=== PATIENT | male | born 1980 | race Two or more races ===

== ENCOUNTER 2022-07-10 15:05 | Inpatient (IN) | payer OTHER ==
[~2022-07-10] VITALS: Ht 172.7 cm; Wt 90.7 kg
[2022-07-10] MEDS ORDERED: VANCOMYCIN PER PHARMACY 1,000 MG IV SCH (16:00)
[2022-07-10 16:43] LABS: Basophils # (auto) 0.1 10 ^3/uL (0-0.2); Basophils % (auto) 1.5 % (0.0-2.0); Eosinophils # (auto) 0.1 10 ^3/uL (0-0.8); Eosinophils % (auto) 0.7 % (0.0-7.0); Hematocrit 44.3 % (41.0-53.0); Hemoglobin 14.9 g/dL (13.5-17.5); Lymphocytes # (auto) 1.5 10 ^3/uL (0.4-5.4); Mean Corpuscular Hemoglobin 31.1 pg (28.0-32.0); Mean Corpuscular Hgb Conc. 33.6 g/dL (32.0-36.0); Mean Corpuscular Volume 92.6 fL (80.0-100.0); Monocytes # (auto) 0.8 10 ^3/uL (0-1.3); Monocytes % (auto) 8.4 % (0.0-12.0); Neutrophils # (auto) 6.6 10 ^3/uL (1.6-8.6); Neutrophils % (auto) 72.4 % (37.0-80.0); Nucleated Red Blood Cells % 0.2 %; Red Blood Cells 4.78 10^6/uL (4.5-5.90); Red Cell Distribution Width 13.2 % (11.8-14.3); White Blood Cell 9.1 10^3/uL (4.4-10.8)
[2022-07-10 17:07] LABS: Albumin 3.8 g/dL (3.4-5.0); Calcium 9.1 mg/dL (8.5-10.1); Potassium 4.6 mmol/L (3.5-5.1)
[2022-07-10 17:16] LABS: Bilirubin, Total 0.6 mg/dL (0.2-1.0); CRP High Sensitivity 1.41 mg/dL (< 0.3); Total Protein 7.4 g/dL (6.4-8.2)
[2022-07-10] MEDS ORDERED: VANCOMYCIN 1GM/250ML 250 ML IV SCH ×2 (18:30→22:00)
[2022-07-10] MEDS ORDERED: HYDROcodone-ACET 10/325MG TAB PO PRN (18:45)
[2022-07-10 21:35] VITALS: BP 127/75
[2022-07-10] MEDS ORDERED: PIPERACILLIN-TAZO 4.5GM 100 ML IV SCH (22:00)
[2022-07-10] MEDS ORDERED: VANCOMYCIN 1GM/250ML 250 ML IV ONE (22:00)
[2022-07-10 22:15] VITALS: BP 127/75
[2022-07-11 05:00] VITALS: BP 111/69
[2022-07-11 08:25] VITALS: BP_SYST 117; BP_SYST 124; BP_DIAS 67; BP_DIAS 79
[2022-07-11 12:44] VITALS: BP_SYST 116; BP_SYST 134; BP_DIAS 60; BP_DIAS 79
[2022-07-11] MEDS ORDERED: ONDANSETRON HCL 4 MG/2 ML VIAL IV PRN (15:15)
[2022-07-11 17:00] VITALS: BP 128/75
[2022-07-11] MEDS ORDERED: VANCOMYCIN PER PHARMACY 0 MG IV SCH (17:00)
[2022-07-11] MEDS: VANCOMYCIN 1GM/250ML 250 ML IV SCH (18:15)
[2022-07-11 22:00] VITALS: BP 132/79
[2022-07-12] MEDS: VANCOMYCIN 1GM/250ML 250 ML IV SCH ×3 (02:09→19:00)
[2022-07-12 05:00] VITALS: BP_SYST 115; BP_SYST 118; BP_DIAS 66; BP_DIAS 80
[2022-07-12] MEDS: MORPHINE SULFATE 4 MG/ML SYR/VIAL IV PRN ×2 (08:32→13:41)
[2022-07-12 09:00] VITALS: BP 125/75
[2022-07-12 13:00] VITALS: BP 116/70
[2022-07-12 17:00] VITALS: BP 115/66
[2022-07-12] MEDS: traMADol HCL 50 MG TAB PO PRN (19:01)
[2022-07-13] MEDS: VANCOMYCIN 1GM/250ML 250 ML IV SCH ×3 (02:40→17:34)
[2022-07-13 05:14] VITALS: BP 114/65
[2022-07-13] MEDS: traMADol HCL 50 MG TAB PO PRN ×3 (05:42→17:35)
[2022-07-13 06:08] LABS: Potassium 3.7 mmol/L (3.5-5.1)
[2022-07-13 06:16] LABS: Albumin 2.9 g/dL (3.4-5.0); BUN/Creatinine Ratio 23.3 (10.0-20.0); Bilirubin, Total 0.6 mg/dL (0.2-1.0); Calcium 8.7 mg/dL (8.5-10.1); Total Protein 6.2 g/dL (6.4-8.2)
[2022-07-13 09:00] VITALS: BP 117/65
[2022-07-13 13:00] VITALS: BP 103/52
[2022-07-13 17:00] VITALS: BP 105/51
[2022-07-13 22:00] VITALS: BP 122/81
[2022-07-14] MEDS: traMADol HCL 50 MG TAB PO PRN ×3 (02:07→17:23)
[2022-07-14] MEDS: VANCOMYCIN 1GM/250ML 250 ML IV SCH ×3 (02:07→18:03)
[2022-07-14 05:00] VITALS: BP 113/64
[2022-07-14 05:42] LABS: INR 1.02 (0.9-1.15); Partial Thromboplastin Time 34.7 sec (24.6-33.4)
[2022-07-14 05:50] LABS: Albumin 2.8 g/dL (3.4-5.0); Calcium 8.3 mg/dL (8.5-10.1); Potassium 4.4 mmol/L (3.5-5.1)
[2022-07-14 05:53] LABS: BUN/Creatinine Ratio 18.1 (10.0-20.0); Bilirubin, Total 0.4 mg/dL (0.2-1.0); Total Protein 5.6 g/dL (6.4-8.2)
[2022-07-14 09:00] VITALS: BP 108/63
[2022-07-14 12:38] LABS: Hepatitis C Antibody Reactive (Negative)
[2022-07-14 13:00] VITALS: BP 108/54
[2022-07-14 16:47] VITALS: BP 112/64
[2022-07-14 22:00] VITALS: BP 113/66
[2022-07-15] MEDS: VANCOMYCIN 1GM/250ML 250 ML IV SCH ×3 (01:34→18:34)
[2022-07-15] MEDS: traMADol HCL 50 MG TAB PO PRN ×2 (01:35→09:08)
[2022-07-15 05:00] VITALS: BP 113/62
[2022-07-15 06:46] LABS: Basophils # (auto) 0.1 10 ^3/uL (0-0.2); Eosinophils # (auto) 0.2 10 ^3/uL (0-0.8); Eosinophils % (auto) 3.7 % (0.0-7.0); Hematocrit 39.2 % (41.0-53.0); Hemoglobin 13.4 g/dL (13.5-17.5); Lymphocytes # (auto) 1.6 10 ^3/uL (0.4-5.4); Lymphocytes % (auto) 30.3 % (10.0-50.0); Mean Corpuscular Hemoglobin 31.6 pg (28.0-32.0); Mean Corpuscular Hgb Conc. 34.3 g/dL (32.0-36.0); Monocytes # (auto) 0.6 10 ^3/uL (0-1.3); Monocytes % (auto) 11.1 % (0.0-12.0); Neutrophils # (auto) 2.8 10 ^3/uL (1.6-8.6); Neutrophils % (auto) 52.9 % (37.0-80.0); Nucleated Red Blood Cells % 0.1 %; Red Blood Cells 4.26 10^6/uL (4.5-5.90); Red Cell Distribution Width 12.8 % (11.8-14.3); White Blood Cell 5.2 10^3/uL (4.4-10.8)
[2022-07-15 07:12] LABS: BUN/Creatinine Ratio 15.9 (10.0-20.0); Calcium 8.8 mg/dL (8.5-10.1); Potassium 4.2 mmol/L (3.5-5.1)
[2022-07-15 09:00] VITALS: BP 108/57
[2022-07-15 13:00] VITALS: BP 110/55
[2022-07-15] MEDS: HYDROcodone-ACET 5/325MG TAB PO PRN ×2 (15:33→20:47)
[2022-07-15 16:53] VITALS: BP 111/56
[2022-07-15 22:00] VITALS: BP 101/47
[2022-07-16] MEDS: VANCOMYCIN 1GM/250ML 250 ML IV SCH ×3 (02:05→18:56)
[2022-07-16 05:00] VITALS: BP 119/65
[2022-07-16 08:56] VITALS: BP 144/82
[2022-07-16] MEDS: HYDROcodone-ACET 5/325MG TAB PO PRN ×3 (11:17→22:40)
[2022-07-16 13:00] VITALS: BP 138/77
[2022-07-16 17:16] VITALS: BP 131/78
[2022-07-16 22:00] VITALS: BP 123/73
[2022-07-17] MEDS: VANCOMYCIN 1GM/250ML 250 ML IV SCH ×3 (01:53→17:41)
[2022-07-17] MEDS: HYDROcodone-ACET 5/325MG TAB PO PRN ×5 (04:50→22:18)
[2022-07-17 05:00] VITALS: BP 104/59
[2022-07-17 08:00] VITALS: BP 107/65
[2022-07-17 12:00] VITALS: BP 111/62
[2022-07-17 16:00] VITALS: BP 98/48
[2022-07-17 21:57] VITALS: BP 116/65
[2022-07-17] MEDS: MUPIROCIN 2% OINT 15gm or 22gm FOR MRSA NARES EACHNOSTRI SCH (22:03)
[2022-07-18] MEDS: VANCOMYCIN 1GM/250ML 250 ML IV SCH ×3 (01:53→18:31)
[2022-07-18 05:00] VITALS: BP_SYST 101; BP_SYST 138; BP_DIAS 63; BP_DIAS 80
[2022-07-18] MEDS: HYDROcodone-ACET 5/325MG TAB PO PRN ×4 (05:02→20:01)
[2022-07-18 08:00] VITALS: BP 101/74
[2022-07-18] MEDS: MUPIROCIN 2% OINT 15gm or 22gm FOR MRSA NARES EACHNOSTRI SCH ×2 (09:55→21:09)
[2022-07-18 12:00] VITALS: BP 100/48
[2022-07-18 16:00] VITALS: BP 110/74
[2022-07-18 22:00] VITALS: BP 112/52
[2022-07-19] MEDS: VANCOMYCIN 1GM/250ML 250 ML IV SCH ×3 (01:41→17:55)
[2022-07-19] MEDS: HYDROcodone-ACET 5/325MG TAB PO PRN ×5 (01:41→19:58)
[2022-07-19 05:00] VITALS: BP 105/59
[2022-07-19 08:00] VITALS: BP 107/55
[2022-07-19] MEDS: MUPIROCIN 2% OINT 15gm or 22gm FOR MRSA NARES EACHNOSTRI SCH ×2 (10:50→21:55)
[2022-07-19 12:00] VITALS: BP 113/41
[2022-07-19 16:00] VITALS: BP 100/52
[2022-07-19 22:00] VITALS: BP 102/57
[2022-07-20] MEDS: VANCOMYCIN 1GM/250ML 250 ML IV SCH ×3 (02:15→18:28)
[2022-07-20] MEDS: HYDROcodone-ACET 5/325MG TAB PO PRN ×5 (02:15→21:56)
[2022-07-20 05:00] VITALS: BP 107/55
[2022-07-20 09:00] VITALS: BP 109/67
[2022-07-20] MEDS: MUPIROCIN 2% OINT 15gm or 22gm FOR MRSA NARES EACHNOSTRI SCH ×2 (09:51→21:55)
[2022-07-20 13:00] VITALS: BP 101/59
[2022-07-20 17:00] VITALS: BP 114/60
[2022-07-20 22:00] VITALS: BP 115/59
[2022-07-21] MEDS: VANCOMYCIN 1GM/250ML 250 ML IV SCH ×3 (02:05→17:48)
[2022-07-21 05:00] VITALS: BP 105/59
[2022-07-21 09:00] VITALS: BP 102/45
[2022-07-21] MEDS: MUPIROCIN 2% OINT 15gm or 22gm FOR MRSA NARES EACHNOSTRI SCH ×2 (10:22→21:04)
[2022-07-21] MEDS: HYDROcodone-ACET 5/325MG TAB PO PRN ×3 (10:22→21:04)
[2022-07-21 13:00] VITALS: BP 98/52
[2022-07-21 17:00] VITALS: BP 130/88
[2022-07-21 22:00] VITALS: BP 108/58
[2022-07-22] MEDS: VANCOMYCIN 1GM/250ML 250 ML IV SCH ×3 (02:31→18:17)
[2022-07-22 05:17] VITALS: BP 105/50
[2022-07-22] MEDS: HYDROcodone-ACET 5/325MG TAB PO PRN ×4 (05:43→21:55)
[2022-07-22 09:08] VITALS: BP 103/49
[2022-07-22] MEDS: MUPIROCIN 2% OINT 15gm or 22gm FOR MRSA NARES EACHNOSTRI SCH (11:47)
[2022-07-22 13:00] VITALS: BP 97/56
[2022-07-22 17:00] VITALS: BP 97/40
[2022-07-22 22:00] VITALS: BP 101/58
[2022-07-23] MEDS: VANCOMYCIN 1GM/250ML 250 ML IV SCH ×3 (01:50→17:38)
[2022-07-23] MEDS: HYDROcodone-ACET 5/325MG TAB PO PRN ×5 (01:51→21:51)
[2022-07-23 05:02] VITALS: BP 97/59
[2022-07-23 06:20] LABS: BUN/Creatinine Ratio 15.9 (10.0-20.0); Calcium 9.1 mg/dL (8.5-10.1)
[2022-07-23 09:00] VITALS: BP 100/59
[2022-07-23] MEDS: ENOXAPARIN SOD 40 MG/0.4 ML SYRINGE SC SCH (10:06)
[2022-07-23 17:00] VITALS: BP 95/40
[2022-07-23 22:00] VITALS: BP 94/54
[2022-07-24] MEDS: VANCOMYCIN 1GM/250ML 250 ML IV SCH ×3 (02:27→18:14)
[2022-07-24] MEDS: HYDROcodone-ACET 5/325MG TAB PO PRN ×5 (04:32→22:05)
[2022-07-24] MEDS ORDERED: IPRA0.03 NEB (04:48)
[2022-07-24] MEDS ORDERED: BENA20TA14 PO (04:48)
[2022-07-24] MEDS ORDERED: POTA10TA51 PO (04:48)
[2022-07-24] MEDS ORDERED: FLUT100I IN (04:48)
[2022-07-24] MEDS ORDERED: CARV25TA55 PO (04:48)
[2022-07-24] MEDS ORDERED: FURO1TAB32 PO (04:48)
[2022-07-24] MEDS ORDERED: ASPI1TAB20 PO (04:48)
[2022-07-24 05:20] VITALS: BP 96/54
[2022-07-24 09:00] VITALS: BP 106/56
[2022-07-24] MEDS: ENOXAPARIN SOD 40 MG/0.4 ML SYRINGE SC SCH (10:04)
[2022-07-24 13:00] VITALS: BP 102/55
[2022-07-24 17:00] VITALS: BP 103/53
[2022-07-24 22:00] VITALS: BP 110/60
[2022-07-24] MEDS: DOCUSATE SOD 100 MG CAP PO SCH (22:05)
[2022-07-25] MEDS: VANCOMYCIN 1GM/250ML 250 ML IV SCH ×3 (01:25→18:40)
[2022-07-25 05:00] VITALS: BP 99/52
[2022-07-25] MEDS: HYDROcodone-ACET 5/325MG TAB PO PRN ×4 (05:13→21:49)
[2022-07-25 07:30] VITALS: BP 97/51
[2022-07-25 09:00] VITALS: BP 97/51
[2022-07-25] MEDS: DOCUSATE SOD 100 MG CAP PO SCH ×2 (10:16→21:49)
[2022-07-25] MEDS: ENOXAPARIN SOD 40 MG/0.4 ML SYRINGE SC SCH (10:16)
[2022-07-25 12:56] VITALS: BP 98/49
[2022-07-25 17:00] VITALS: BP 92/44
[2022-07-25 22:00] VITALS: BP 90/59
[2022-07-26] MEDS: VANCOMYCIN 1GM/250ML 250 ML IV SCH ×3 (01:45→18:49)
[2022-07-26] MEDS: HYDROcodone-ACET 5/325MG TAB PO PRN ×5 (04:33→22:42)
[2022-07-26 05:00] VITALS: BP 104/54
[2022-07-26 05:26] LABS: Albumin 2.9 g/dL (3.4-5.0)
[2022-07-26 05:31] LABS: BUN/Creatinine Ratio 16.7 (10.0-20.0); Calcium 8.7 mg/dL (8.5-10.1); Phosphorus 4.3 mg/dL (2.5-4.90)
[2022-07-26 07:30] VITALS: BP 89/43
[2022-07-26 08:49] VITALS: BP 89/43
[2022-07-26] MEDS: DOCUSATE SOD 100 MG CAP PO SCH ×2 (09:51→22:41)
[2022-07-26] MEDS: ENOXAPARIN SOD 40 MG/0.4 ML SYRINGE SC SCH (09:53)
[2022-07-26 13:20] VITALS: BP 89/47
[2022-07-26 17:13] VITALS: BP 86/47
[2022-07-26 22:00] VITALS: BP 93/51
[2022-07-27] MEDS: VANCOMYCIN 1GM/250ML 250 ML IV SCH ×3 (02:05→17:46)
[2022-07-27] MEDS: HYDROcodone-ACET 5/325MG TAB PO PRN ×4 (03:14→19:23)
[2022-07-27 05:00] VITALS: BP_SYST 101; BP_SYST 85; BP_DIAS 43; BP_DIAS 44
[2022-07-27 09:00] VITALS: BP 95/47
[2022-07-27] MEDS: DOCUSATE SOD 100 MG CAP PO SCH ×2 (10:04→21:35)
[2022-07-27] MEDS: ENOXAPARIN SOD 40 MG/0.4 ML SYRINGE SC SCH (10:04)
[2022-07-27 13:00] VITALS: BP 109/50
[2022-07-27 16:45] VITALS: BP 92/41
[2022-07-27 22:00] VITALS: BP 99/50
[2022-07-27] MEDS ORDERED: ACETAMINOPHEN 500 MG TAB PO ONE (23:55)
[2022-07-28] MEDS: HYDROcodone-ACET 5/325MG TAB PO PRN ×5 (02:16→21:51)
[2022-07-28] MEDS: VANCOMYCIN 1GM/250ML 250 ML IV SCH ×3 (02:23→18:57)
[2022-07-28 05:00] VITALS: BP 91/42
[2022-07-28 09:00] VITALS: BP 102/55
[2022-07-28] MEDS: DOCUSATE SOD 100 MG CAP PO SCH ×2 (09:50→21:52)
[2022-07-28] MEDS: ENOXAPARIN SOD 40 MG/0.4 ML SYRINGE SC SCH (09:51)
[2022-07-28 13:00] VITALS: BP 98/50
[2022-07-28 16:59] VITALS: BP 98/50
[2022-07-28 22:00] VITALS: BP 120/70
[2022-07-29] MEDS: HYDROcodone-ACET 5/325MG TAB PO PRN ×4 (02:16→22:20)
[2022-07-29] MEDS: VANCOMYCIN 1GM/250ML 250 ML IV SCH ×3 (02:16→18:10)
[2022-07-29 05:17] VITALS: BP 97/47
[2022-07-29 09:00] VITALS: BP 118/49
[2022-07-29] MEDS: DOCUSATE SOD 100 MG CAP PO SCH ×2 (09:38→22:20)
[2022-07-29] MEDS: ENOXAPARIN SOD 40 MG/0.4 ML SYRINGE SC SCH (09:39)
[2022-07-29 13:00] VITALS: BP 109/65
[2022-07-29 16:41] VITALS: BP 104/60
[2022-07-29 22:00] VITALS: BP 114/60
[2022-07-30] MEDS: VANCOMYCIN 1GM/250ML 250 ML IV SCH ×3 (02:05→19:28)
[2022-07-30] MEDS: HYDROcodone-ACET 5/325MG TAB PO PRN ×4 (04:45→23:34)
[2022-07-30 05:00] VITALS: BP 123/70
[2022-07-30] MEDS: ENOXAPARIN SOD 40 MG/0.4 ML SYRINGE SC SCH (08:59)
[2022-07-30] MEDS: DOCUSATE SOD 100 MG CAP PO SCH ×2 (08:59→21:15)
[2022-07-30 09:00] VITALS: BP 101/59
[2022-07-30 12:58] VITALS: BP 105/54
[2022-07-30 16:21] LABS: Albumin 3.2 g/dL (3.4-5.0); Calcium 8.8 mg/dL (8.5-10.1); Potassium 4.3 mmol/L (3.5-5.1)
[2022-07-30 16:26] LABS: BUN/Creatinine Ratio 17.9 (10.0-20.0); Bilirubin, Total 0.5 mg/dL (0.2-1.0); Total Protein 6.8 g/dL (6.4-8.2)
[2022-07-30 17:00] VITALS: BP 101/55
[2022-07-30] MEDS ORDERED: IOHEXOL 300 MG/ML 100ML BOTTLE IJ ONE (17:09)
[2022-07-30 22:00] VITALS: BP 105/61
[2022-07-31] MEDS: VANCOMYCIN 1GM/250ML 250 ML IV SCH ×3 (01:37→18:51)
[2022-07-31 05:43] VITALS: BP 103/60
[2022-07-31 08:00] VITALS: BP 101/52
[2022-07-31 08:40] VITALS: BP 101/52
[2022-07-31] MEDS: DOCUSATE SOD 100 MG CAP PO SCH ×2 (09:49→22:16)
[2022-07-31] MEDS: HYDROcodone-ACET 5/325MG TAB PO PRN ×2 (09:50→18:51)
[2022-07-31] MEDS: ENOXAPARIN SOD 40 MG/0.4 ML SYRINGE SC SCH (09:50)
[2022-07-31 12:42] VITALS: BP 102/62
[2022-07-31 16:19] VITALS: BP 102/62
[2022-07-31 22:00] VITALS: BP 100/53
[2022-08-01] MEDS: VANCOMYCIN 1GM/250ML 250 ML IV SCH ×3 (02:25→18:04)
[2022-08-01 05:00] VITALS: BP 106/60
[2022-08-01 08:00] VITALS: BP 101/59
[2022-08-01] MEDS: ENOXAPARIN SOD 40 MG/0.4 ML SYRINGE SC SCH (08:55)
[2022-08-01] MEDS: DOCUSATE SOD 100 MG CAP PO SCH ×2 (08:55→22:26)
[2022-08-01] MEDS: HYDROcodone-ACET 5/325MG TAB PO PRN ×2 (08:55→22:27)
[2022-08-01 09:37] LABS: INR 0.97 (0.9-1.15)
[2022-08-01 12:00] VITALS: BP 97/43
[2022-08-01 16:00] VITALS: BP 93/50
[2022-08-01 22:00] VITALS: BP 103/46
[2022-08-02] MEDS: VANCOMYCIN 1GM/250ML 250 ML IV SCH ×3 (02:26→18:10)
[2022-08-02 08:00] VITALS: BP 97/51
[2022-08-02] MEDS: HYDROcodone-ACET 5/325MG TAB PO PRN ×3 (09:08→21:29)
[2022-08-02] MEDS: DOCUSATE SOD 100 MG CAP PO SCH ×2 (10:29→21:29)
[2022-08-02] MEDS: ENOXAPARIN SOD 40 MG/0.4 ML SYRINGE SC SCH (10:30)
[2022-08-02 12:00] VITALS: BP 96/44
[2022-08-02 16:00] VITALS: BP 97/38
[2022-08-02 22:00] VITALS: BP 124/70
[2022-08-03] MEDS: VANCOMYCIN 1GM/250ML 250 ML IV SCH ×3 (02:39→17:32)
[2022-08-03 05:00] VITALS: BP 104/54
[2022-08-03 08:00] VITALS: BP 109/37
[2022-08-03] MEDS: HYDROcodone-ACET 5/325MG TAB PO PRN ×3 (08:36→21:56)
[2022-08-03] MEDS: DOCUSATE SOD 100 MG CAP PO SCH ×2 (09:19→21:55)
[2022-08-03] MEDS: ENOXAPARIN SOD 40 MG/0.4 ML SYRINGE SC SCH (09:20)
[2022-08-03 12:00] VITALS: BP 99/51
[2022-08-03 16:00] VITALS: BP 96/34
[2022-08-03 22:00] VITALS: BP 106/54
[2022-08-04] VITALS (7 sets, daily range): BP systolic 93–140; BP diastolic 36–93
[2022-08-04] MEDS: VANCOMYCIN 1GM/250ML 250 ML IV SCH ×3 (02:02→18:06)
[2022-08-04 05:54] LABS: Basophils # (auto) 0.1 10 ^3/uL (0-0.2); Basophils % (auto) 1.8 % (0.0-2.0); Eosinophils # (auto) 0.7 10 ^3/uL (0-0.8); Eosinophils % (auto) 13.2 % (0.0-7.0); Hematocrit 40.1 % (41.0-53.0); Hemoglobin 14.3 g/dL (13.5-17.5); Lymphocytes # (auto) 1.7 10 ^3/uL (0.4-5.4); Lymphocytes % (auto) 33.5 % (10.0-50.0); Mean Corpuscular Hemoglobin 32.1 pg (28.0-32.0); Mean Corpuscular Hgb Conc. 35.6 g/dL (32.0-36.0); Mean Corpuscular Volume 90.2 fL (80.0-100.0); Monocytes # (auto) 0.5 10 ^3/uL (0-1.3); Monocytes % (auto) 9.6 % (0.0-12.0); Neutrophils # (auto) 2.2 10 ^3/uL (1.6-8.6); Neutrophils % (auto) 41.9 % (37.0-80.0); Nucleated Red Blood Cells % 0.2 %; Red Blood Cells 4.44 10^6/uL (4.5-5.90); Red Cell Distribution Width 13.3 % (11.8-14.3); White Blood Cell 5.2 10^3/uL (4.4-10.8)
[2022-08-04 06:04] LABS: Potassium 4.3 mmol/L (3.5-5.1)
[2022-08-04 06:15] LABS: Bilirubin, Total 0.3 mg/dL (0.2-1.0); Calcium 8.9 mg/dL (8.5-10.1); Total Protein 6.3 g/dL (6.4-8.2)
[2022-08-04] MEDS: ENOXAPARIN SOD 40 MG/0.4 ML SYRINGE SC SCH (10:00)
[2022-08-04] MEDS: HYDROcodone-ACET 5/325MG TAB PO PRN ×2 (10:18→23:16)
[2022-08-04] MEDS: DOCUSATE SOD 100 MG CAP PO SCH ×2 (10:18→21:49)
[2022-08-04] MEDS ORDERED: MIDAZOLAM HCL 2MG/2ML 2ml VIAL (1mg/ml) ONE (10:51)
[2022-08-04] MEDS ORDERED: ONDANSETRON HCL 4 MG/2 ML VIAL ONE (10:51)
[2022-08-04] MEDS ORDERED: GLYCOPYRROLATE 0.2 MG/ML 1ML VIAL ONE (10:51)
[2022-08-04] MEDS ORDERED: PROPOFOL 10 MG/ML 20 ML IV ONE (10:51)
[2022-08-04] MEDS ORDERED: KETOROLAC TROMETH 30 MG/ML 1ML VIAL ONE (13:20)
[2022-08-04] MEDS ORDERED: VANCOMYCIN HCL 1000 MG VL ONE (13:21)
[2022-08-04] MEDS ORDERED: HYDROmorphone HCL 2 MG/ML VL/or syr IV PRN (13:45)
[2022-08-04] MEDS ORDERED: ONDANSETRON HCL 4 MG/2 ML VIAL IV PRN (13:45)
[2022-08-05] MEDS: VANCOMYCIN 1GM/250ML 250 ML IV SCH ×3 (02:10→17:21)
[2022-08-05 05:00] VITALS: BP 96/48
[2022-08-05] MEDS: DOCUSATE SOD 100 MG CAP PO SCH ×2 (10:00→21:43)
[2022-08-05] MEDS: ENOXAPARIN SOD 40 MG/0.4 ML SYRINGE SC SCH (10:25)
[2022-08-05] MEDS: HYDROcodone-ACET 5/325MG TAB PO PRN ×2 (10:27→17:21)
[2022-08-05 13:00] VITALS: BP 96/39
[2022-08-05 17:00] VITALS: BP 138/72
[2022-08-05 22:00] VITALS: BP 95/42
[2022-08-06] MEDS: VANCOMYCIN 1GM/250ML 250 ML IV SCH ×3 (02:42→17:31)
[2022-08-06] MEDS: HYDROcodone-ACET 5/325MG TAB PO PRN ×3 (02:52→15:35)
[2022-08-06 05:00] VITALS: BP 124/39
[2022-08-06 09:00] VITALS: BP 98/57
[2022-08-06] MEDS: DOCUSATE SOD 100 MG CAP PO SCH ×2 (10:45→21:58)
[2022-08-06] MEDS: ENOXAPARIN SOD 40 MG/0.4 ML SYRINGE SC SCH (10:46)
[2022-08-06 12:58] VITALS: BP 105/64
[2022-08-06 16:39] VITALS: BP 101/62
[2022-08-06 22:00] VITALS: BP 115/51
[2022-08-07] MEDS: VANCOMYCIN 1GM/250ML 250 ML IV SCH ×3 (02:26→18:26)
[2022-08-07 05:00] VITALS: BP 102/53
[2022-08-07 08:00] VITALS: BP 110/70
[2022-08-07 09:00] VITALS: BP 110/71
[2022-08-07] MEDS: DOCUSATE SOD 100 MG CAP PO SCH ×2 (10:04→21:53)
[2022-08-07] MEDS: ENOXAPARIN SOD 40 MG/0.4 ML SYRINGE SC SCH (10:05)
[2022-08-07] MEDS: HYDROcodone-ACET 5/325MG TAB PO PRN ×2 (10:22→18:26)
[2022-08-07 13:00] VITALS: BP 114/54
[2022-08-07 17:00] VITALS: BP 119/76
[2022-08-07 22:00] VITALS: BP 106/51
[2022-08-08] MEDS: VANCOMYCIN 1GM/250ML 250 ML IV SCH ×3 (02:40→18:55)
[2022-08-08 05:00] VITALS: BP 97/56
[2022-08-08] MEDS: HYDROcodone-ACET 5/325MG TAB PO PRN ×4 (06:13→22:31)
[2022-08-08 09:09] VITALS: BP 104/53
[2022-08-08] MEDS: ENOXAPARIN SOD 40 MG/0.4 ML SYRINGE SC SCH (09:39)
[2022-08-08] MEDS: DOCUSATE SOD 100 MG CAP PO SCH ×2 (09:40→21:27)
[2022-08-08 12:37] VITALS: BP 107/46
[2022-08-08 17:27] VITALS: BP 103/47
[2022-08-08 22:00] VITALS: BP 100/44
[2022-08-09] MEDS: VANCOMYCIN 1GM/250ML 250 ML IV SCH ×3 (02:05→17:45)
[2022-08-09 05:19] VITALS: BP 100/55
[2022-08-09 09:00] VITALS: BP 102/49
[2022-08-09] MEDS: DOCUSATE SOD 100 MG CAP PO SCH ×2 (09:44→21:21)
[2022-08-09] MEDS: HYDROcodone-ACET 5/325MG TAB PO PRN ×2 (09:44→22:42)
[2022-08-09] MEDS: ENOXAPARIN SOD 40 MG/0.4 ML SYRINGE SC SCH (09:45)
[2022-08-09 13:00] VITALS: BP 95/48
[2022-08-09 17:00] VITALS: BP 112/58
[2022-08-09 22:00] VITALS: BP 99/51
[2022-08-10] MEDS: VANCOMYCIN 1GM/250ML 250 ML IV SCH ×3 (02:05→18:17)
[2022-08-10 05:00] VITALS: BP 128/70
[2022-08-10 05:55] LABS: Albumin 2.8 g/dL (3.4-5.0); BUN/Creatinine Ratio 23.8 (10.0-20.0); Calcium 7.8 mg/dL (8.5-10.1); Potassium 3.6 mmol/L (3.5-5.1)
[2022-08-10 05:56] LABS: Basophils # (auto) 0.2 10 ^3/uL (0-0.2); Basophils % (auto) 3.5 % (0.0-2.0); Eosinophils # (auto) 0.6 10 ^3/uL (0-0.8); Eosinophils % (auto) 11.1 % (0.0-7.0); Hematocrit 38.3 % (41.0-53.0); Hemoglobin 13.1 g/dL (13.5-17.5); Lymphocytes # (auto) 1.2 10 ^3/uL (0.4-5.4); Mean Corpuscular Hemoglobin 31.6 pg (28.0-32.0); Mean Corpuscular Hgb Conc. 34.3 g/dL (32.0-36.0); Mean Corpuscular Volume 92.3 fL (80.0-100.0); Monocytes # (auto) 0.6 10 ^3/uL (0-1.3); Monocytes % (auto) 10.6 % (0.0-12.0); Neutrophils # (auto) 3.2 10 ^3/uL (1.6-8.6); Neutrophils % (auto) 54.8 % (37.0-80.0); Nucleated Red Blood Cells % 0.1 %; Red Blood Cells 4.15 10^6/uL (4.5-5.90); Red Cell Distribution Width 13.8 % (11.8-14.3); White Blood Cell 5.9 10^3/uL (4.4-10.8)
[2022-08-10 05:58] LABS: Bilirubin, Total 0.4 mg/dL (0.2-1.0); Total Protein 5.7 g/dL (6.4-8.2)
[2022-08-10 09:00] VITALS: BP 101/56
[2022-08-10] MEDS: DOCUSATE SOD 100 MG CAP PO SCH ×3 (10:00→22:00)
[2022-08-10] MEDS: ENOXAPARIN SOD 40 MG/0.4 ML SYRINGE SC SCH (10:20)
[2022-08-10] MEDS: HYDROcodone-ACET 5/325MG TAB PO PRN ×3 (10:21→22:12)
[2022-08-10 13:00] VITALS: BP 116/70
[2022-08-10 17:00] VITALS: BP 123/62
[2022-08-10 22:00] VITALS: BP 107/48
[2022-08-11] MEDS: VANCOMYCIN 1GM/250ML 250 ML IV SCH ×2 (01:55→08:31)
[2022-08-11 04:58] VITALS: BP 99/57
[2022-08-11] MEDS: HYDROcodone-ACET 5/325MG TAB PO PRN ×3 (08:30→22:03)
[2022-08-11] MEDS: ENOXAPARIN SOD 40 MG/0.4 ML SYRINGE SC SCH (08:31)
[2022-08-11 09:00] VITALS: BP 111/62
[2022-08-11] MEDS: DOCUSATE SOD 100 MG CAP PO SCH ×2 (10:00→22:03)
[2022-08-11 13:00] VITALS: BP 101/64
[2022-08-11 17:00] VITALS: BP 98/55
[2022-08-11 22:00] VITALS: BP 111/63
[2022-08-12 04:35] VITALS: BP 108/55
[2022-08-12] MEDS: HYDROcodone-ACET 5/325MG TAB PO PRN ×3 (07:04→21:50)
[2022-08-12 09:00] VITALS: BP 132/71
[2022-08-12] MEDS: DOCUSATE SOD 100 MG CAP PO SCH ×2 (10:00→21:53)
[2022-08-12 13:00] VITALS: BP 109/44
[2022-08-12] MEDS ORDERED: VANCOMYCIN PER PHARMACY 0 MG IV SCH (15:45)
[2022-08-12] MEDS: VANCOMYCIN 1GM/250ML 250 ML IV SCH (16:33)
[2022-08-12 17:00] VITALS: BP 112/64
[2022-08-12 22:00] VITALS: BP 99/43
[2022-08-13] MEDS: VANCOMYCIN 1GM/250ML 250 ML IV SCH ×4 (00:06→23:37)
[2022-08-13 05:00] VITALS: BP 99/30
[2022-08-13] MEDS: HYDROcodone-ACET 5/325MG TAB PO PRN (05:47)
[2022-08-13 09:00] VITALS: BP 113/60
[2022-08-13] MEDS: DOCUSATE SOD 100 MG CAP PO SCH ×2 (10:00→22:21)
[2022-08-13] MEDS: HYDROcodone-ACET 10/325MG TAB PO PRN ×3 (10:29→23:37)
[2022-08-13 13:00] VITALS: BP 98/48
[2022-08-13 17:00] VITALS: BP 128/71
[2022-08-13 22:00] VITALS: BP 100/55
[2022-08-14] VITALS (7 sets, daily range): BP systolic 98–129; BP diastolic 52–92
[2022-08-14] MEDS: HYDROcodone-ACET 10/325MG TAB PO PRN ×3 (07:00→20:24)
[2022-08-14 07:09] LABS: Basophils # (auto) 0.2 10 ^3/uL (0-0.2); Basophils % (auto) 4.7 % (0.0-2.0); Eosinophils # (auto) 0.6 10 ^3/uL (0-0.8); Eosinophils % (auto) 12.8 % (0.0-7.0); Hematocrit 42.7 % (41.0-53.0); Hemoglobin 14.7 g/dL (13.5-17.5); Lymphocytes # (auto) 1.1 10 ^3/uL (0.4-5.4); Lymphocytes % (auto) 25.1 % (10.0-50.0); Mean Corpuscular Hemoglobin 31.6 pg (28.0-32.0); Mean Corpuscular Hgb Conc. 34.5 g/dL (32.0-36.0); Mean Corpuscular Volume 91.7 fL (80.0-100.0); Monocytes # (auto) 0.4 10 ^3/uL (0-1.3); Monocytes % (auto) 8.8 % (0.0-12.0); Neutrophils # (auto) 2.1 10 ^3/uL (1.6-8.6); Neutrophils % (auto) 48.6 % (37.0-80.0); Nucleated Red Blood Cells % 0.6 %; Red Blood Cells 4.66 10^6/uL (4.5-5.90); Red Cell Distribution Width 13.7 % (11.8-14.3); White Blood Cell 4.4 10^3/uL (4.4-10.8)
[2022-08-14] MEDS: DOCUSATE SOD 100 MG CAP PO SCH ×2 (09:07→22:07)
[2022-08-14] MEDS: VANCOMYCIN 1GM/250ML 250 ML IV SCH ×2 (09:09→15:47)
[2022-08-14] MEDS: ENOXAPARIN SOD 40 MG/0.4 ML SYRINGE SC SCH (10:00)
[2022-08-15] MEDS: VANCOMYCIN 1GM/250ML 250 ML IV SCH ×4 (00:26→23:43)
[2022-08-15 05:00] VITALS: BP 103/51
[2022-08-15] MEDS: HYDROcodone-ACET 10/325MG TAB PO PRN ×3 (07:19→20:25)
[2022-08-15 07:30] VITALS: BP 98/61
[2022-08-15] MEDS: ENOXAPARIN SOD 40 MG/0.4 ML SYRINGE SC SCH (08:17)
[2022-08-15] MEDS: DOCUSATE SOD 100 MG CAP PO SCH ×2 (08:17→21:53)
[2022-08-15 09:00] VITALS: BP 98/61
[2022-08-15 13:00] VITALS: BP 95/59
[2022-08-15 17:00] VITALS: BP 99/56
[2022-08-15 22:00] VITALS: BP 93/51
[2022-08-16] MEDS: HYDROcodone-ACET 10/325MG TAB PO PRN ×4 (02:07→19:46)
[2022-08-16 05:00] VITALS: BP 89/52
[2022-08-16 07:30] VITALS: BP 98/54
[2022-08-16 09:00] VITALS: BP 99/50
[2022-08-16] MEDS: VANCOMYCIN 1GM/250ML 250 ML IV SCH ×2 (09:13→18:51)
[2022-08-16] MEDS: ENOXAPARIN SOD 40 MG/0.4 ML SYRINGE SC SCH (10:45)
[2022-08-16] MEDS: DOCUSATE SOD 100 MG CAP PO SCH ×2 (10:45→21:48)
[2022-08-16 17:00] VITALS: BP 93/64
[2022-08-16 22:00] VITALS: BP 93/51
[2022-08-17] MEDS: HYDROcodone-ACET 10/325MG TAB PO PRN ×4 (03:37→20:34)
[2022-08-17 05:00] VITALS: BP 102/46
[2022-08-17] MEDS: VANCOMYCIN 1GM/250ML 250 ML IV SCH ×2 (05:11→19:14)
[2022-08-17 09:00] VITALS: BP 109/49
[2022-08-17] MEDS: ENOXAPARIN SOD 40 MG/0.4 ML SYRINGE SC SCH (09:29)
[2022-08-17] MEDS: DOCUSATE SOD 100 MG CAP PO SCH ×2 (09:29→22:56)
[2022-08-17 13:10] VITALS: BP 108/61
[2022-08-17 17:00] VITALS: BP 106/57
[2022-08-17 22:00] VITALS: BP 110/54
[2022-08-18] MEDS: VANCOMYCIN 1GM/250ML 250 ML IV SCH ×3 (01:19→21:44)
[2022-08-18] MEDS: HYDROcodone-ACET 10/325MG TAB PO PRN ×4 (03:15→19:24)
[2022-08-18 05:10] VITALS: BP 118/58
[2022-08-18 08:54] VITALS: BP 120/50
[2022-08-18] MEDS: DOCUSATE SOD 100 MG CAP PO SCH ×2 (09:29→21:44)
[2022-08-18] MEDS: ENOXAPARIN SOD 40 MG/0.4 ML SYRINGE SC SCH (09:30)
[2022-08-18 13:00] VITALS: BP 114/63
[2022-08-18 17:00] VITALS: BP 122/80
[2022-08-18 22:00] VITALS: BP 104/35
[2022-08-19 05:00] VITALS: BP 93/43
[2022-08-19] MEDS: VANCOMYCIN 1GM/250ML 250 ML IV SCH ×2 (06:52→18:37)
[2022-08-19] MEDS: HYDROcodone-ACET 10/325MG TAB PO PRN ×4 (06:52→21:01)
[2022-08-19 08:47] VITALS: BP 108/51
[2022-08-19] MEDS: ENOXAPARIN SOD 40 MG/0.4 ML SYRINGE SC SCH (09:06)
[2022-08-19] MEDS: DOCUSATE SOD 100 MG CAP PO SCH ×2 (09:08→21:01)
[2022-08-19 13:00] VITALS: BP 113/42
[2022-08-19 17:00] VITALS: BP 106/59
[2022-08-19 22:00] VITALS: BP 99/53
[2022-08-20] MEDS: VANCOMYCIN 1GM/250ML 250 ML IV SCH ×3 (04:06→23:21)
[2022-08-20] MEDS: HYDROcodone-ACET 10/325MG TAB PO PRN ×4 (04:07→20:01)
[2022-08-20 05:00] VITALS: BP 97/45
[2022-08-20] MEDS: ENOXAPARIN SOD 40 MG/0.4 ML SYRINGE SC SCH (08:30)
[2022-08-20] MEDS: DOCUSATE SOD 100 MG CAP PO SCH ×2 (08:32→21:47)
[2022-08-20 08:33] VITALS: BP 114/59
[2022-08-20 13:00] VITALS: BP 120/42
[2022-08-20 17:00] VITALS: BP 125/57
[2022-08-20 22:00] VITALS: BP 106/50
[2022-08-21 05:00] VITALS: BP 96/52
[2022-08-21 08:00] VITALS: BP 110/63
[2022-08-21] MEDS: HYDROcodone-ACET 10/325MG TAB PO PRN (08:09)
[2022-08-21] MEDS: VANCOMYCIN 1GM/250ML 250 ML IV SCH (08:09)
[2022-08-21] MEDS: DOCUSATE SOD 100 MG CAP PO SCH (09:09)
[2022-08-21] MEDS: ENOXAPARIN SOD 40 MG/0.4 ML SYRINGE SC SCH (09:09)
[2022-08-21] MEDS ORDERED: CIPR500T4 PO (11:13)
[2022-08-21 11:59] VITALS: BP 110/63
[2022-08-21 12:00] VITALS: BP 115/61
== END 2022-08-21 13:38 | DRG 513 ==
LOC: EEVIPCON 15:05 → ER 15:05 → OVERFLOW 18:48 → CENTRAL 21:19
PROVIDERS: ADMIT Internal Medicine; ATTEND Internal Medicine
PROC: 0KBC0ZZ Excision of Right Hand Muscle, Open Approach (ICD-10-PCS; principal; 2022-08-05)
DX: M86.8X4 Other osteomyelitis, hand (principal); L02.511 Cutaneous abscess of right hand; L03.011 Cellulitis of right finger; K76.0 Fatty (change of) liver, not elsewhere classified; B95.62 Methicillin resistant Staphylococcus aureus infection as the cause of diseases classified elsewhere; B19.20 Unspecified viral hepatitis C without hepatic coma; Z20.822 Contact with and (suspected) exposure to COVID-19; Z87.891 Personal history of nicotine dependence
CPT/HCPCS: 36415; 73120; 73140; 73200; 73201; 76705; 80048; 80053; 80069; 80202; 80329; 82565; 83605; 85025; 85610; 85652; 85730; 86141; 86709; 86803; 86850; 86900; 86901; 87040; 87070; 87075; 87077; 87081; 87186; 87205; 87340; 87426; 96365; G0378; J1885; J2250; J2405; J2704